=== PATIENT | female | born 1980 | race Caucasian/White ===

== ENCOUNTER 2023-03-11 13:20 | Emergency (ER) | payer OTHER ==
[~2023-03-11] VITALS: Ht 167.6 cm; Wt 90.9 kg
[2023-03-11 14:06] VITALS: TEMP 98.2
[2023-03-11] MEDS ORDERED: metoclopramide 5 mg/ml inj IV ONE (14:10)
[2023-03-11] MEDS ORDERED: normal saline 1000ml 1,000 ML IV ONE (14:10)
[2023-03-11] MEDS ORDERED: ketorolac trometh. 30mg/ml inj. IM ONE (14:10)
[2023-03-11] MEDS ORDERED: diphenhydrAMINE 50 mg/ml inj IV ONE (14:10)
[2023-03-11] MEDS ORDERED: diazepam inj 5 MG/ML inj. IV ONE (14:10)
[2023-03-11 14:23] LABS: BASOPHILS # (AUTO) 0.1 X10'3 (0-0.2); BASOPHILS % (AUTO) 0.7 % (0-1); EOSINOPHILS % (AUTO) 0.4 % (0-6); HEMATOCRIT 38.2 % (35.0-45.0); LYMPHOCYTES # (AUTO) 1.9 X10'3 (1.1-4.8); LYMPHOCYTES % (AUTO) 26.8 % (21-51); MEAN CORPUSCULAR HEMOGLOBIN 29.8 PG (27.0-31.0); MEAN CORPUSCULAR HGB CONC 34.1 g/dL (33.0-36.5); MEAN CORPUSCULAR VOLUME 87.3 FL (78-98); MEAN PLATELET VOLUME 6.9 FL (7.4-10.4); MONOCYTES # (AUTO) 0.4 X10'3 (0-0.9); MONOCYTES % (AUTO) 5.1 % (2-12); NEUTROPHILS # (AUTO) 4.8 X10'3 (1.8-7.7); PLATELET COUNT 350 X10'3 (140-440); RED BLOOD COUNT 4.38 X10'6 (4.20-5.60); RED CELL DISTRIBUTION WIDTH 13.1 % (11.5-14.5); WHITE BLOOD COUNT 7.1 X10'3 (4.5-11.0)
[2023-03-11 14:35] LABS: ALANINE AMINOTRANSFERASE 22 U/L (12-78); ALBUMIN 3.9 G/DL (3.4-5.0); ALBUMIN/GLOBULIN RATIO 1.1 (1.1-1.5); ALKALINE PHOSPHATASE 63 IU/L (46-116); ANION GAP 11 (8-16); ASPARTATE AMINO TRANSFERASE 19 U/L (10-37); BILIRUBIN,TOTAL 0.2 MG/DL (0.1-1.0); BLOOD UREA NITROGEN 17 MG/DL (7-18); BUN/CREATININE RATIO 26.6 (10.0-20.0); CALCIUM 8.7 MG/DL (8.5-10.1); CHLORIDE 104 MMOL/L (99-107); CREATININE 0.64 MG/DL (0.40-0.90); GLUCOSE 107 MG/DL (70-104); POTASSIUM 3.6 MMOL/L (3.5-5.1); SODIUM 139 MMOL/L (135-145); TOTAL CARBON DIOXIDE 23.9 MMOL/L (24-32); TOTAL PROTEIN 7.5 G/DL (6.4-8.2); eGFR > 90 ML/MIN
[2023-03-11 15:42] VITALS: BP 151/92; PULSE 82; RESP 17; O2SAT 97
== END 2023-03-11 15:43 | disposition home or self-care (01) ==
LOC: ER 13:21
DX: G43.909 Migraine, unspecified, not intractable, without status migrainosus (principal); M62.838 Other muscle spasm; R53.1 Weakness; Z88.6 Allergy status to analgesic agent; Z88.5 Allergy status to narcotic agent; Z79.899 Other long term (current) drug therapy; Z88.8 Allergy status to other drugs, medicaments and biological substances
CPT/HCPCS: 36415; 80053; 83735; 85025; 96361; 96372; 96374; 96375; 99285; J1200; J1885; J2765; J3360; J7030

== ENCOUNTER 2025-03-11 07:47 | Inpatient (IN) | payer BC, OTHER ==
[~2025-03-11] VITALS: Ht 167.6 cm; Wt 84.0 kg
--- NOTE | 2025-03-11 09:40 | Physician Documentation ---
History of Present Illness ~ Chief Complaint: Rectal Pain Stated Complaint: ANAL PAIN Time Seen by MD: 09:20 Primary Medical Doctor: Xin Saldana Source: patient (11) Mode of Arrival: POV HPI Patient comes in for evaluation of severe rectal pain. She reports that she had no bowel movement for two days, had a large bowel movement after which she began to have rectal pain that became more severe. Her last stool output was two days ago, and she now reports that in addition to feeling like she needs to move her bowel she is having a hard time urinating. She thought it might be hemorrhoids that she has a remote history of internal hemorrhoids, used [id number] preparation H, tucks pads, and lidocaine without any significant relief. She denies any blood in the stool, denies any fever, abdominal pain, or vomiting. The patient is in a severe amount of pain. Medication Reconciliation Allergies: Coded Allergies: aspirin (Unverified Allergy, Unknown, 03/11/25) fentanyl (Unverified Allergy, Unknown, 03/11/25) tramadol (Unverified Allergy, Unknown, 03/11/25) codeine (Verified Adverse Reaction, Mild, nausea, 03/11/25) Scheduled Cyclobenzaprine HCl (Cyclobenzaprine HCl), 1 TAB PO BID, (Reported) Cyclobenzaprine HCl (Cyclobenzaprine HCl), 1 TAB PO PRN, (Reported) Dextroamphetamine/Amphetamine (Dextroamp-Amphet ER 10 mg Cap), 1 CAP PO QAM, (Reported) Scheduled PRN Dextroamphetamine/Amphetamine (Dextroamp-Amphet ER 10 mg Cap), 1 CAP PO PRN PRN for adhd, (Reported) Miscellaneous Medications Bupropion HCl (Bupropion Xl), (Reported) Gabapentin (Gabapentin ER), (Reported) Discontinued Medications Cyclobenzaprine HCl (Cyclobenzaprine HCl), 1 TAB PO HS, (Reported) Discontinued Reason: wrong med Dextroamphetamine/Amphetamine (Adderall 10 mg Tablet), 1 TAB PO DAILY, (Reported) Discontinued Reason: wrong med Gabapentin (Gabapentin ER), (Reported) Discontinued Reason: wrong med Past Medical History Past Medical History: Migraine, Hypertension, Chronic Back Pain, Osteoporosis, *PSYCH* Past Surgical History: noncontributory Smoking Status: Never smoker Alcohol Use: Heavy (Recent heavy use after a family ) Lives with: Spouse Lives In: Home Occupation: employed Review of Systems All Other Systems at this time: Reviewed and Negative Physical Exam Vital Signs: Temperature: 99.4, Source: Oral, Heart Rate: 111, Respiratory Rate: 19, BP: 148/83, Pulse Oximetry: 99, Weight: 84.090 Oxygen Flow Rate: 0 Physical Exam General: Pt is awake, alert, oriented x4 in significant distress, moaning and crying and unable to change positions in bed, sit, or even lie on her back. Head: Normocephalic and atraumatic. Eyes: Conjunctiva normal. ENT: Mucous membranes dry Neck: Supple. Chest: Clear to auscultation bilaterally, without rales, rhonchi, or wheezes. There is no accessory muscle use or retractions. Cardiac: Regular rate and rhythm without murmurs, gallops or rubs. Palpation of the chest wall is normal. Abd: Soft, nondistended, minimally tender, with normoactive to hyperactive bowel sounds. No guarding or rebound. Rectal: Pt has perirectal erythema, a quiescent appearing external hemorrhoid, and a large exquisitely tender mass posterior to the anus. I am unable to pal espinoza due to severe pain and tenderness. Extremities: Within normal limits without cyanosis, clubbing, or edema. Skin: Titanic, warm and dry with no significant rash appreciated. Neuro: Cranial nerves II-XII grossly intact. The gait is not tested at this time Progress Results/Orders Results/Orders Orders - VAHID LEE MD Culture Blood (03/11/25 09:40) Morphine 2mg/Ml Inj. (Morphine Inj.) (03/11/25 09:40) Monitor (03/11/25 09:40) Saline Lock (03/11/25 09:40) Straight Cath For Urine Sample (03/11/25 09:40) Ct Abdomen Pelvis (03/11/25 09:40) Lauren Hospitalist (03/11/25 13:10) Md Jovan Aguilar (03/11/25 13:10) Completed Orders - VAHID LEE MD Cbc/Diff (03/11/25 09:40) Hcg Serum Ql (03/11/25 09:40) Ondansetron Inj. (Zofran 4mg/2ml Vial) (03/11/25 09:40) Morphine 4mg/Ml Inj. (Morphine Inj.) (03/11/25 09:40) Normal Saline 1000ml (0.9% Sodium Chlori (03/11/25 09:40) Nothing By Mouth (03/11/25 Lunch) BMP (03/11/25 09:40) Diazepam Inj (Valium Inj) (03/11/25 09:40) Lacticsepsis (03/11/25 09:40) Ct Abdomen Pelvis (03/11/25 09:40) Iohexol 300mg/Ml 100ml Inj. (Omnipaque-3 (03/11/25 10:59) Ua W/Microscopic, Cult If Ind (03/11/25 11:14) Piperacillin/Tazo 3.375gm/50ml (Zosyn 3. (03/11/25 11:50) Vital Signs 03/11/25 03/11/25 03/11/25 03/11/25 07:54 08:21 08:21 09:58 Temp 99.4 99.4 Pulse 121 111 Resp 16 18 19 19 B/P (MAP) 146/86 148/83 (104) Pulse Ox 100 99 O2 Flow Rate 0 03/11/25 03/11/25 03/11/25 10:16 12:18 12:21 Resp 15 18 16 Laboratory Tests Test 03/11/25 10:27 03/11/25 11:14 White Blood Count 16.2 H Red Blood Count 3.98 L Hemoglobin 11.8 L Hematocrit 34.5 L Mean Corpuscular Volume 86.5 Mean Corpuscular Hemoglobin 29.5 Mean Corpuscular Hemoglobin Concent 34.1 Red Cell Distribution Width 12.7 Platelet Count 376 Mean Platelet Volume 6.4 L Neutrophils (%) (Auto) 84.5 H Lymphocytes (%) (Auto) 8.4 L Monocytes (%) (Auto) 6.7 Eosinophils (%) (Auto) 0.1 Basophils (%) (Auto) 0.3 Neutrophils # (Auto) 13.7 H Lymphocytes # (Auto) 1.4 Monocytes # (Auto) 1.1 H Eosinophils # (Auto) 0.0 Basophils # (Auto) 0.0 CBC Comment Prothrombin Time 11.4 INR International Normalized Ratio 1.1 Activated Partial Thromboplast Time 34 H Coagulation Comments Sodium Level 138 Potassium Level 3.2 L Chloride Level 103 Carbon Dioxide Level 27.2 Anion Gap 8 Blood Urea Nitrogen 8 Creatinine 0.47 Estimated GFR/1.73 m2 > 90 BUN/Creatinine Ratio 17.0 Glucose Level 94 Lactic Acid Level 1.0 Calcium Level 8.1 L Phosphorus Level 1.5 L Magnesium Level 1.9 Pro-B-Type Natriuretic Peptide 122 Albumin 2.8 L Thyroid Stimulating Hormone (TSH) 0.66 Human Chorionic Gonadotropin, Qual Negative Chemistry Comments Urine Specimen Description Voided Urine Color Yellow Urine Clarity Cloudy Urine pH 6.0 Urine Specific [place] 1.020 Urine Protein Trace Urine Glucose (UA) Negative Urine Ketones 15 H Urine Occult Blood Small Urine Nitrite Negative Urine Bilirubin Negative Urine Urobilinogen 0.2 Urine Leukocyte Esterase Negative Urine RBC 10-20 Urine WBC 0-4 Urine Squamous Epithelial Cells Moderate Urine Bacteria Few Urine Mucus Many Urine Culture Indicated Not ind Volume Urine Centrifuged 10 ml Urine Comment Microbiology Date/Time Source Procedure Growth Status 03/11/25 11:21 Blood Hand Left Blood Culture - Preliminary NEGATIVE (LESS THAN 24 HOURS) Resulted Consults/PCP Consults/PCP : Time Call Requested: 13:11 Consult Reason/Comments: Hospitalist and Surgery Additional Comment [id number] Case d/w Dr. Brewer, who will kindly consult Dr Hua, Hospitalist, aware and is coming down to discuss patient. Medical Decision Making Additional Comments Patient presenting with rectal pain after a large bowel movement following a period of constipation. Initially I entertained the diagnosis of an anal fissure, which can be quite painful, however patient was in much too much pain for this to be likely. Examination showed perirectal erythema, warmth, and a mass suggesting deep space infection. Patient was made comfortable with IV fluids, pain medications, anxiolytics, and IV antibiotics, and imaging was pursued to evaluate the extent of the infectious process. This did show to be large perirectal abscess with posterior extension, patient was admitted to hospitalist service with surgical consultation for definitive care. Patient without evidence of sepsis at this time. Departure Time of Disposition: 13:11 Admitted to Inpatient Unit: yes, to hospitalist Impression: Primary Impression: Perirectal abscess Condition: Guarded Referrals: NO PRIMARY CARE PROVIDER (PCP) Education Educated: Patient, Family Educated regarding: diagnosis, treatment Signature Scribe Signature: Attestation: VAHID LEE MD Mar 11, 2025 09:40
[2025-03-11] MEDS: diazepam inj 5 MG/ML inj. IV ONE (09:58)
[2025-03-11] MEDS: normal saline 1000ML IV soln IVB ONE (09:58)
[2025-03-11] MEDS: ondansetron/PF 4mg/2ml inj IV ONE (09:58)
[2025-03-11] MEDS: morphine 4 MG/ML inj SYRINge IV ONE (09:58)
[2025-03-11 10:39] LABS: MEAN PLATELET VOLUME 6.4 FL (7.4-10.4); RED CELL DISTRIBUTION WIDTH 12.7 % (11.5-14.5)
[2025-03-11 10:48] LABS: CREATININE 0.47 MG/DL (0.40-0.90); TOTAL CARBON DIOXIDE 27.2 MMOL/L (24-32); eCRCL 143 ML/MIN; eGFR > 90 ML/MIN
[2025-03-11] MEDS ORDERED: iohexol 300mg/ml 100ml inj. ONE (10:59)
[2025-03-11 11:14] LABS: HCG SERUM QL NEGATIVE
[2025-03-11 11:22] LABS: LEUKOCYTE ESTERASE ,URINE NEGATIVE (Neg); NITRITES, URINE NEGATIVE (Neg); OCCULT BLOOD,URINE SMALL (Neg)
[2025-03-11 11:26] LABS: UA COLLECTION TYPE VOIDED
[2025-03-11 11:30] LABS: MUCUS STRANDS MANY /LPF (Neg); SQUAMOUS EPITHELIAL CELL,UR MODERATE /LPF (FEW)
[2025-03-11] MEDS: piperacillin/tazo 3.375gm/50ml 50 ML IV ONE (12:18)
--- NOTE | 2025-03-11 12:21 | RADIOLOGY REPORT ---
EXAM: CT CT ABDOMEN PELVIS W/ IV CONTRAST HISTORY: Perianal abscess clinically -- evaluate extent TECHNIQUE: Volumetric multidetector CT images of the abdomen and pelvis were obtained after the admin istration of intravenous contrast. All CT scans at this facility use dose modulation, iterative recon struction, and/or weight based dosing when appropriate to reduce radiation dose to as low as reasonab ly achievable. COMPARISON: None FINDINGS: [LOWER CHEST]: The partially visualized lung bases are clear without a pleural effusion. [LIVER]: Normal hepatic size without suspicious focal lesion. [GALLBLADDER AND BILIARY TREE]: Surgically absent. [SPLEEN]: Unremarkable. [PANCREAS]: Unremarkable. [ADRENAL GLANDS]: Unremarkable [KIDNEYS]: No hydronephrosis. No nephroureterolithiasis. 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 No imaging follow-up required. [BLADDER]: Unremarkable for the degree distention. [REPRODUCTIVE ORGANS]: Hysterectomy. [BOWEL/MESENTERY]: Stomach is normal. No CT evidence of bowel obstruction. Significant perirectal abs cess with posterior extension along bilateral perirectal tissue. Abscess measures 5.2 x 3.8 cm. [ASCITES]: Absent [LYMPHADENOPATHY]: No pathologically enlarged lymph nodes by CT size criteria [VASCULATURE]: No aneurysmal dilatation. [ABDOMINAL WALL]: Unremarkable. [MUSCULOSKELETAL]: No acute fracture or aggressive focal osseous lesion. Multifocal degenerative luna ge of the visualized spine. Multilevel chronic superior endplate height loss of T11 and T12. No ret ropulsion. IMPRESSION: 1. Significant perirectal abscess as detailed above. 2. Posterior superior extent to the level of the levator ani. 3. Recommend further evaluation with MRI rectal protocol for fistula analysis.
--- NOTE | 2025-03-11 13:17 | HISTORY AND PHYSICAL ---
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 She reports that she had no bowel movement for two days, had a large bowel movement after which she began to have rectal pain that became more severe. Her last stool output was two days ago, and she now reports that in addition to feeling like she needs to move her bowel she is having a hard time urinating. She thought it might be hemorrhoids that she has a remote history of internal hemorrhoids, used [id number] preparation H, tucks pads, and lidocaine without any significant relief. She denies any blood in the stool, denies any fever, abdominal pain, or vomiting. The patient is in a severe amount of pain. Emergency department patient was evaluated by physician, was diagnosed with a perirectal abscess, and after consultation with the surgeon decision was made to admit patient for further evaluation treatment, patient started on IV antibiotics, NPO. No additional complaint or concern. Allergies: Coded Allergies: aspirin (Unverified Allergy, Unknown, 03/11/25) fentanyl (Unverified Allergy, Unknown, 03/11/25) tramadol (Unverified Allergy, Unknown, 03/11/25) codeine (Verified Adverse Reaction, Mild, nausea, 03/11/25) Active prescriptions Non Home Medications Non Past Medical History Past Medical History As in HPI Past Surgical History Surgical History Comment As in HPI Past Social History Social History Comment Deny illicit drug abuse tobacco alcohol use live with the family good social support Health Maintenance Health Maintenance Noncontributory ROS ROS Constitutional : no fever , no chills, or weakness. No diaphoresis. Allergic/Immunologic, no lymphadenopathy, no hives, no skin eruptions. Eyes, no recent visual changes, no eye pain, no photophobia. Ears, nose, mouth, throat, no sore throat, no nosebleed, no ear pain. Cardiovascular, no palpitations, skipped beats, chest pain, no peripheral edema, Respiratory, no dyspnea, orthopnea, cough, hemoptysis, chest wall pain. Gastrointestinal, no abdominal pain, nausea, vomiting, constipation or diarrhea. : no dysuria, hematuria, pelvic pain, urethral d/c. Positive for rectal pain Endocrine, no polyuria, polydipsia, recent unintentional weight gain or loss. Hematologic/Lymphatic, no petechiae, no enlarged lymph nodes, no bone pain. Integumentary, no rash, no skin lesions, Musculoskeletal, no muscle aches, or pain, no muscle cramps, no recent change in gait Neurological, no dizziness, no headache, no syncope, no paresthesia. Psychiatric, no delusions, visual hallucinations, or hearing hallucinations. ROS - in rest is as in HPI. Exam Vitals: Vital Signs Date Time Temp Pulse Resp B/P (MAP) Pulse Ox O2 Delivery O2 Flow Rate FiO2 03/11/25 12:21 16 03/11/25 08:21 99.4 111 148/83 (104) 99 0 Vital signs, stable , febrile, tachycardic, Pulse Oximetry reflects adequate oxygenation. BMI is 29, weight 84 kg General: well developed, well nourished. Awake , alert, and oriented x4, resting comfortably in the bed, in acute distress secondary to rectal pain Skin: Warm, dry, no pallor, no rash or petechiae. HEENT: Atraumatic, normocephalic, EOMI, anicteric sclera B; pink conjunctiva; PERRLA, normal oropharynx, moist oral and nasal mucosa. Tympanic membrane , nose , throat clear. Neck: Trachea midline. Supple, full range of motion, no JVD, bruit , hepatojugular reflex , lymphadenopathy or masses, or other lesions Cardiac: Regular rhythm, regular rate no murmurs, rubs, or gallops. Normal S1 and S2, no S3 noticed. PMI is normal. Respiratory: Equal breath sounds bilaterally, no tachypnea; lungs clear to auscultation bilaterally, no wheezing ,rub or rales, or crackles. Chest wall is symmetric and without deformity. No signs of trauma. Chest wall is nontender. No signs of respiratory distress. Resonance is normal upon percussion bilaterally. Gastrointestinal: Abdomen symmetric, non-distended, soft, non-tender, normal bowel sounds x4 quadrant, normoactive, no hepatosplenomegaly , no masses , no bruit, no flank pain bilaterally. No voluntary guarding, rebound, or rigidity. No tenderness to percussion. No pulsatile masses. Equal femoral pulses. No Lord's sign or McBurney point tenderness. Back; no CVA tenderness bilaterally, no deformities. Neck and back are without deformity as well. No tenderness noted on palpation of the spinous processes. Spinous processes are midline. Cervical, thoracic, and lumbar paraspinal muscles are not tender and are without spasm. : Rectal exam completed by ER physician, reviewed. Musculoskeletal: Extremities, normal range of motion, non-tender, muscle strength 5/5 x 4. Negative Homans signs bilaterally on lower extremity. Distal pulses full symmetrical, no clubbing, cyanosis , edema. Neurological: Speech is clear, alert, and oriented x 4. No motor or sensory deficit, deep tendon reflexes normal, cerebellar intact. Cranial nerves II-XII intact. Psych: Alert and or appropriate, normal affect. Vascular: Good distal pulses, which are equal x4; capillary refill less than 2 seconds. Lymphatic, no lymphadenopathy. Diagnostic Data Last Recorded Lab Results: 03/11/25 1027 03/11/25 1027 Advance Care Planning Advanced Care plannin - 30 Minutes Additional Plan Assessment Perirectal abscess Sepsis Acute urinary retention Hypophosphatemia Chronic constipation in exacerbation migraine headaches Hypokalemia Hypertension fair control dehydration associated with ketonuria Hypoalbuminemia Gait disorder, antalgic History of hysterectomy, migraine headaches Plan IV fluids, antibiotics Pain control IV p.o. analgesics Replace electrolytes Additional lab work Pending Laxatives on board PT evaluation and treatment Forman catheter in place functional Surgeon Dr. Escudero is on the case Reconciled home medications DVT gastropathy prophylaxis addressed IV Protonix Patient NPO Sepsis Screening Reassessment Date: Mar 11, 2025 Date of Service: Mar 11, 2025 Billing Provider: ESTEPHANIA MCKNIGHT MD Common Visit Codes: [id number] INP/OBS CARE (HIGH) Secondary Visit Codes: [id number] CARE PLAN 30 MINUTES ESTEPHANIA MCKNIGHT MD Mar 11, 2025 13:17
[2025-03-11] MEDS ORDERED: magnesium hydroxide 30ml (MOM) UD suspension PO PRN (14:20)
[2025-03-11] MEDS ORDERED: ondansetron 4mg rapidly disintigrating tab PO PRN (14:20)
[2025-03-11] MEDS ORDERED: mag hydrox/Alum hydrox/simeth 30ml oral suspension PO PRN (14:20)
[2025-03-11] MEDS ORDERED: bisacodyl 10mg suppository rectal RC PRN (14:20)
[2025-03-11 14:42] LABS: APTT 34 SECONDS (22-32); INR 1.1 INR
[2025-03-11] MEDS: HYDROmorphone inj. 0.5 MG/0.5 ML DISP.SYRIN IV PRN (14:49)
[2025-03-11] MEDS: potassium Cl 20mEq in NS 1,000 ML IV SCH (14:52)
[2025-03-11 14:54] LABS: PHOSPHORUS 1.5 MG/DL (2.3-4.5); PRO BRAIN NATRIURETIC PEPTIDE 122.0 PG/ML (0-125)
[2025-03-11 15:20] VITALS: BP 138/72; PULSE 115; RESP 14; TEMP 100.3; O2SAT 100
[2025-03-11] MEDS: HYDROcodone/acetaminophen 10/325mg tab PO PRN (16:00)
[2025-03-11] MEDS ORDERED: GABA300T28 (16:11)
[2025-03-11] MEDS ORDERED: CYCL-394 PO ×2 (16:11→16:14)
[2025-03-11] MEDS ORDERED: CYCL10TA25 PO (16:11)
[2025-03-11] MEDS ORDERED: DEXT10CA19 PO ×2 (16:11→16:16)
[2025-03-11] MEDS ORDERED: [UNRECOGNIZED DRUG - CODE] (16:11)
[2025-03-11] MEDS ORDERED: BUPR-726 (16:11)
[2025-03-11] MEDS ORDERED: DEXT10TA8 PO (16:11)
[2025-03-11] MEDS ORDERED: sodium phosphate inj. 15 MMOL in dextrose 5%-water 250 ML IV PRN (16:35)
[2025-03-11] MEDS ORDERED: potassium Cl 20 mEq SR tablet PO PRN (16:35)
[2025-03-11] MEDS ORDERED: magnesium Cl slow-release 64mg tablet PO PRN (16:35)
[2025-03-11] MEDS ORDERED: potassium Cl 40MEQ/1/2NS 520ml 520 ML IV PRN (16:35)
[2025-03-11] MEDS ORDERED: magnesium sulf-water 4G/100mL 100 ML IV PRN (16:35)
[2025-03-11] MEDS ORDERED: sodium phosphate inj. 30 MMOL in dextrose 5%-water 250 ML IV PRN (16:35)
[2025-03-11 17:04] VITALS: RESP 18; O2SAT 100
[2025-03-11] MEDS: morphine 4 MG/ML inj SYRINge IV PRN (17:28)
[2025-03-11] MEDS: docusate sod 100mg capsule PO SCH (19:25)
[2025-03-11] MEDS: metoclopramide 5 mg/ml inj IV PRN (19:27)
[2025-03-11] MEDS: piperacillin/tazo 4.5gm/100ml 100 ML IV SCH (19:42)
[2025-03-11 20:00] VITALS: BP 137/80; PULSE 118; RESP 15; TEMP 99.3; O2SAT 96
[2025-03-11] MEDS: K and/or MAG REPLACEMENT MC SCH (20:00)
--- NOTE | 2025-03-11 20:51 | PROGRESS NOTE ---
Progress Note ID Providers to CC ~ Progress Note Progress Note: pt seen-findings consistent with perirectal abscess-pt needs I/D perirectal abscess-discussed procedure including risks/benefits/alternatives JAYESH LOPEZ MD Mar 11, 2025 20:51
[2025-03-12] VITALS (19 sets, daily range): BP systolic 125–161; BP diastolic 68–106; PULSE 89–116; RESP 12–20; TEMP 97–99.2; O2SAT 91–99
[2025-03-12 06:34] LABS: MEAN PLATELET VOLUME 6.7 FL (7.4-10.4); RED CELL DISTRIBUTION WIDTH 12.7 % (11.5-14.5)
[2025-03-12 06:54] LABS: CREATININE 0.52 MG/DL (0.40-0.90); TOTAL CARBON DIOXIDE 25.2 MMOL/L (24-32); eCRCL 129 ML/MIN; eGFR > 90 ML/MIN
[2025-03-12 07:56] LABS: INR 1.2 INR
[2025-03-12] MEDS ORDERED: pantoprazole 40MG/NS 100ML BAG 100 ML IV SCH (08:00)
[2025-03-12] MEDS ORDERED: labetalol 20mg/4ml (5mg/ml) syringe IV PRN ×2 (09:10→11:25)
[2025-03-12] MEDS ORDERED: ondansetron/PF 4mg/2ml inj IV PRN ×2 (09:10→11:25)
[2025-03-12] MEDS ORDERED: hydrALAZINE 20mg/ml inj. IV PRN (09:10)
[2025-03-12] MEDS ORDERED: morphine 4 MG/ML inj SYRINge IV PRN ×2 (09:10→11:25)
[2025-03-12] MEDS ORDERED: HYDROmorphone/PF 0.2 MG/ML SYRINGE IV PRN (09:10)
[2025-03-12] MEDS: ringers solution, lacted 1,000 ML IV SCH ×2 (09:10→11:25)
[2025-03-12] MEDS: scopolamine 1MG/72H patch 1 PATCH PATCH.TD.3 TD SCH (09:12)
[2025-03-12] MEDS ORDERED: midazolam 1 mg/ML 2ml injection ONE (10:43)
[2025-03-12] MEDS ORDERED: fentaNYL/PF 50MCG/1 ML 2ML syringe ONE (10:43)
[2025-03-12] MEDS ORDERED: ondansetron/PF 4mg/2ml inj ONE (10:45)
[2025-03-12] MEDS ORDERED: dexamethasone sod phosphate 4mg/ml inj. ONE (10:53)
[2025-03-12] MEDS ORDERED: propofol inj 20 ML IV ONE (10:53)
[2025-03-12] MEDS ORDERED: LIDOcaine 2% (20mg/ml) 5ml vial ONE (10:53)
[2025-03-12] MEDS ORDERED: morphine 4 MG/ML inj SYRINge ONE (10:58)
[2025-03-12] MEDS ORDERED: HYDROcodone/acetaminophen 5mg/325mg tablet PO PRN (11:10)
--- NOTE | 2025-03-12 11:11 | OPERATIVE REPORT ---
Operative Report Providers to CC ~ Date of Procedure: Mar 12, 2025 Pre-Operative Diagnosis: Perirectal abscess; sepsis Post-Operative Diagnosis SAME as PRE-Op Procedure Performed i/d perirectal abscess Surgeon: sabra Rodriguez none Anesthesiologist: Nikolas Salgado Type of Anesthesia: General Findings: perirectal abscess Estimated Blood Loss: min Specimen Removed: culture JAYESH LOPEZ MD Mar 12, 2025 11:11
[2025-03-12] MEDS ORDERED: enalaprilat 1.25mg/ml 2ml vial IV PRN (11:25)
[2025-03-12] MEDS ORDERED: meperidine/PF 25mg/ml syringe IV PRN ×3 (11:25)
[2025-03-12] MEDS: HYDROmorphone/PF 0.2 MG/ML SYRINGE IV PRN (11:35)
[2025-03-12] MEDS: acetaminophen 1,000mg/100ml IV 100 ML IV PRN (11:36)
[2025-03-12] MEDS: potassium Cl 20 mEq SR tablet PO PRN (13:45)
--- NOTE | 2025-03-12 14:53 | OPERATIVE REPORT ---
DATE OF SURGERY: 03/12/2025 DICTATING PHYSICIAN: Donnie Brewer MD PREOPERATIVE DIAGNOSIS: Perirectal abscess. POSTOPERATIVE DIAGNOSIS: Perirectal abscess. PROCEDURE PERFORMED: Incision and drainage of perirectal abscess. SURGEON: Donnie Brewer MD MASTER ELECTRICIAN: None. ANESTHESIA: General/Dr. Salgado. DRAINS: None. INDICATIONS FOR OPERATION: A 44-year-old female with perirectal pain, found to have a large perirectal abscess, taken to surgery for drainage. INTRAOPERATIVE FINDINGS: Large perirectal abscess. DESCRIPTION OF PROCEDURE: The patient was placed supine on the operating room table. After induction of general anesthesia and placement of endotracheal tube, timeout was performed. The patient was placed in lithotomy. Perirectal area was then prepped and draped. Incision was then made in the approximately 4 o'clock to the previously draining tract. Large amount of pus evacuated. Cultures were obtained. The wound was then explored. Loculations broken down using finger dissection. Large abscess cavity was then irrigated with antibiotic solution, essentially packed with a quarter-inch gauze. Dressing applied. The patient was transferred to recovery in stable condition. Donnie Brewer MD TID: [id number] RECEIPT: [id number]
--- NOTE | 2025-03-12 16:50 | PROGRESS NOTE ---
Daily Progress Note Providers to CC Doing better today, pain well controlled, tolerating medication fine awaiting to go to OR today ~ Central Line/PICC still needed: No Forman-Non Protocol Forman Indications Met/Not Met: F/C Indications Met Antibiotic Timeout Antibiotic Ordered?: Yes MRSA Education MRSA Education Provided to pt: Yes Subjective As above Objective Vital Signs Date Time Temp Pulse Resp B/P (MAP) Pulse Ox O2 Delivery O2 Flow Rate FiO2 03/12/25 16:15 19 03/12/25 12:10 105 136/84 (101) 96 Nasal Cannula 2.0 03/12/25 11:19 99.0 Vital signs, stable ,afebrile. Pulse Oximetry reflects adequate oxygenation. General: well developed, well nourished. Awake , alert, and oriented x4, resting comfortably in the bed, in no acute distress . Skin: Warm, dry, no pallor, no rash or petechiae. HEENT: Atraumatic, normocephalic, EOMI, anicteric sclera B; pink conjunctiva; PERRLA, normal oropharynx, moist oral and nasal mucosa. Tympanic membrane , nose , throat clear. Neck: Trachea midline. Supple, full range of motion, no JVD, bruit , hepatojugular reflex , lymphadenopathy or masses, or other lesions Cardiac: Regular rhythm, regular rate no murmurs, rubs, or gallops. Normal S1 and S2, no S3 noticed. PMI is normal. Respiratory: Equal breath sounds bilaterally, no tachypnea; lungs clear to auscultation bilaterally, no wheezing ,rub or rales, or crackles. Chest wall is symmetric and without deformity. No signs of trauma. Chest wall is nontender. No signs of respiratory distress. Resonance is normal upon percussion bilaterally. Gastrointestinal: Abdomen symmetric, non-distended, soft, non-tender, normal bowel sounds x4 quadrant, normoactive, no hepatosplenomegaly , no masses , no bruit, no flank pain bilaterally. No voluntary guarding, rebound, or rigidity. No tenderness to percussion. No pulsatile masses. Equal femoral pulses. No Lord's sign or McBurney point tenderness. Back; no CVA tenderness bilaterally, no deformities. Neck and back are without deformity as well. No tenderness noted on palpation of the spinous processes. Spinous processes are midline. Cervical, thoracic, and lumbar paraspinal muscles are not tender and are without spasm. Musculoskeletal: Extremities, normal range of motion, non-tender, muscle strength 5/5 x 4. Negative Homans signs bilaterally on lower extremity. Distal pulses full symmetrical, no clubbing, cyanosis , edema. Neurological: Speech is clear, alert, and oriented x 4. No motor or sensory deficit, deep tendon reflexes normal, cerebellar intact. Cranial nerves II-XII intact. Psych: Alert and or appropriate, normal affect. Vascular: Good distal pulses, which are equal x4; capillary refill less than 2 seconds. Lymphatic, no lymphadenopathy. Result Diagram: 03/12/25 0559 03/12/25 0559 Coagulation Studies Laboratory Tests Test 03/11/25 10:27 03/12/25 07:31 Activated Partial Thromboplast Time 34 SECONDS (22-32) H Prothrombin Time 12.5 SECONDS (9.0-12.0) H INR International Normalized Ratio 1.2 INR Coagulation Comments Problem\Assessment\Plan Assessment Perirectal abscess Sepsis Acute urinary retention Hypophosphatemia Chronic constipation in exacerbation migraine headaches Hypokalemia Hypertension fair control dehydration associated with ketonuria Hypoalbuminemia Gait disorder, antalgic History of hysterectomy, migraine headaches Plan IV fluids, antibiotics Pain control IV p.o. analgesics Replace electrolytes Additional lab work Pending Laxatives on board PT evaluation and treatment Forman catheter in place functional Surgeon Dr. Escudero is on the case , will take patient to OR today Reconciled home medications DVT gastropathy prophylaxis addressed IV Protonix Patient NPO Sepsis Screening Reassessment Date: Mar 12, 2025 Date of Service: Mar 12, 2025 Billing Provider: ESTEPHANIA MCKNIGHT MD Common Visit Codes: [id number] INP/OBS CARE(HIGH) ESTEPHANIA MCKNIGHT MD Mar 12, 2025 16:50
[2025-03-13] VITALS (7 sets, daily range): BP systolic 115–152; BP diastolic 72–94; PULSE 80–109; RESP 15–18; TEMP 97.6–99.8; O2SAT 95–99
--- NOTE | 2025-03-13 02:23 | CONSULTATION ---
DATE OF CONSULTATION: 03/11/2025 DICTATING PHYSICIAN: Donnie Brewer MD REASON FOR CONSULTATION: Evaluation of perirectal abscess. HISTORY OF PRESENT ILLNESS: The patient is a 44-year-old female with a history of hypertension, chronic pain, and osteoporosis, who developed severe perirectal pain. CT of the pelvis revealed a perirectal abscess. Surgical evaluation is now requested. On further questioning, the patient denies any previous episodes. No history of incontinence. No history of perirectal fistula. No history of inflammatory bowel disease. PAST MEDICAL HISTORY: Notable for migraines, hypertension, chronic pain, osteoporosis. PAST SURGICAL HISTORY: Unremarkable. HOME MEDICATIONS: See chart. ALLERGIES: INCLUDE ASPIRIN, FENTANYL, TRAMADOL, AND CODEINE. SOCIAL HISTORY: Denies tobacco use. She does use alcohol on occasion. She lives with her spouse. REVIEW OF SYSTEMS: See H and P. PHYSICAL EXAMINATION: GENERAL: A well-nourished female, in no distress. VITAL SIGNS: Unremarkable. ABDOMEN: Nondistended. RECTAL: Perirectal area is quite tender. LABORATORY DATA: WBC of 16, hematocrit of 34, platelet count is 376. Chemistries are unremarkable. IMAGING STUDIES: CAT scan reveals a large perirectal abscess. IMPRESSION: * Perirectal abscess. * Hypertension. * History of osteoporosis. * Chronic pain. PLAN: I and See Brewer MD TID: [id number] RECEIPT: [id number]/YOK
[2025-03-13 06:33] LABS: MEAN PLATELET VOLUME 6.7 FL (7.4-10.4); RED CELL DISTRIBUTION WIDTH 12.4 % (11.5-14.5)
[2025-03-13 08:16] LABS: TOTAL CARBON DIOXIDE 26.9 MMOL/L (24-32)
[2025-03-13 08:43] LABS: CREATININE 0.48 MG/DL (0.40-0.90); eCRCL 140 ML/MIN; eGFR > 90 ML/MIN
--- NOTE | 2025-03-13 13:14 | PROGRESS NOTE ---
Daily Progress Note Providers to CC ~ Antibiotic Timeout Antibiotic Ordered?: Yes Subjective No acute events overnight. Patient examined at bedside. No new complaints, not in acute distress. Patient denies chest pain, sob, palpitations, abdominal pain, n/v/d. Vss, labs notable for persistent leukocytosis but otherwise unremarkable, continued on abx. Objective Vital Signs Date Time Temp Pulse Resp B/P (MAP) Pulse Ox O2 Delivery O2 Flow Rate FiO2 03/13/25 11:28 16 03/13/25 11:00 99.2 89 130/80 (97) 95 Room Air 03/12/25 12:30 1.0 Result Diagram: 03/13/25 0555 03/13/25 05 Physical Exam General: Generalized weakness, A&Ox 3, NAD HEENT: Normocephalic, PERRLA Neck: Supple, trachea midline, no JVD Chest: Clear to auscultation bilaterally Cardiovascular: RRR, S1&S2 GI: Soft and nontender Extremities: No cyanosis/clubbing/or edema MANAGER FIELD INVESTIGATIONS: CN II-XII intact, no focal deficits Musculoskeletal: No paraspinal muscle tenderness, no muscle spasm Skin: I&D perirectal abscess, packed with gauze Coagulation Studies Laboratory Tests Test 03/11/25 10:27 03/12/25 07:31 Activated Partial Thromboplast Time 34 SECONDS (22-32) H Prothrombin Time 12.5 SECONDS (9.0-12.0) H INR International Normalized Ratio 1.2 INR Coagulation Comments Problem\Assessment\Plan Assessment & Plan Perirectal abscess Sepsis Acute urinary retention Hypophosphatemia Chronic constipation Hypokalemia Hypertension Dehydration Hypoalbuminemia Gait disorder History of hysterectomy, migraine headaches -s/p I&D of perirectal abscess (Dr. Brewer), continued on abx, IVF Date of Service: Mar 13, 2025 Billing Provider: ELSI GUNN Common Visit Codes: [id number] INP/OBS CARE(HIGH) ELSI GUNN Mar 13, 2025 13:14
--- NOTE | 2025-03-13 16:49 | PROGRESS NOTE ---
Progress Note ID Providers to CC ~ Progress Note Progress Note: doing well/start sitz JAYESH Jones MD Mar 13, 2025 16:49
[2025-03-13] MEDS: magnesium hydroxide 30ml (MOM) UD suspension PO SCH (19:03)
[2025-03-14 02:00] VITALS: BP 142/84; PULSE 97; RESP 20; TEMP 97.2; O2SAT 98
[2025-03-14 07:00] VITALS: BP 131/82; PULSE 89; RESP 12; TEMP 96.9; O2SAT 93
[2025-03-14 08:17] LABS: MEAN PLATELET VOLUME 6.7 FL (7.4-10.4); RED CELL DISTRIBUTION WIDTH 12.8 % (11.5-14.5)
[2025-03-14 08:48] LABS: CREATININE 0.52 MG/DL (0.40-0.90); TOTAL CARBON DIOXIDE 28.7 MMOL/L (24-32); eCRCL 129 ML/MIN; eGFR > 90 ML/MIN
[2025-03-14] MEDS: ondansetron/PF 4mg/2ml inj IV PRN (09:42)
[2025-03-14] MEDS ORDERED: HYDR-3965 PO (13:54)
[2025-03-14] MEDS ORDERED: METR-159 PO (13:54)
[2025-03-14] MEDS ORDERED: CIPR-458 PO (13:54)
[2025-03-14 15:00] VITALS: BP 128/86; PULSE 87; RESP 16; TEMP 97.7; O2SAT 96
--- NOTE | 2025-03-14 17:40 | DISCHARGE SUMMARY ---
Discharge Summary Providers to CC ~ Discharge Summary Admission Diagnosis: Perirectal abscess; sepsis Hospital Course DATE OF ADMISSION: 03/11/25 DATE OF DISCHARGE: 03/14/25 Discharge Diagnosis\Comment: Perirectal abscess Sepsis 2/2 above Acute urinary retention Hypophosphatemia Chronic constipation Hypokalemia Hypertension Dehydration Hypoalbuminemia Gait disorder History of hysterectomy, migraine headaches Operations\Procedures: I&D perirectal abscess Consultants: Surgeon Donnie Banda Complications: None Condition on DC: Stable New Medications: Ciprofloxacin HCl (Ciprofloxacin HCl) 500 Mg Tab 1 TAB PO BID for 10 Days, #20 TAB Hydrocodone Bit/Acetaminophen 5/325 MG (Shields 5/325 MG) 5 Mg/325 Mg Tablet 1 TAB PO Q4H PRN for moderate or severe pain for 5 Days, #30 TAB Metronidazole* (Flagyl*) 500 Mg Tablet 1 TAB PO Q8H for 10 Days, #30 TAB Continued Medications: Bupropion HCl (Bupropion Xl) 150 Mg Tab.er.24h Cyclobenzaprine HCl (Cyclobenzaprine HCl) 10 Mg Tablet 1 TAB PO BID for muscle spasm Cyclobenzaprine HCl (Cyclobenzaprine HCl) 10 Mg Tablet 1 TAB PO PRN for 10 Days, #30 TAB Dextroamphetamine/Amphetamine (Dextroamp-Amphet ER 10 mg Cap) 10 Mg Cap.er.24h 1 CAP PO QAM Dextroamphetamine/Amphetamine (Dextroamp-Amphet ER 10 mg Cap) 10 Mg Cap.er.24h 1 CAP PO PRN PRN for adhd for 30 Days, #30 CAP 0 Refills Gabapentin (Gabapentin ER) 600 Mg Tab.er.24h Discharge Summary: Hospital Course Portia Madrigal is a 44-year-old female with past medical history of hypertension and constipation who presents to the ED with chief complaint of acute onset severe rectal pain that started after being constipated for two days and subsequently having a large bowel movement. Diagnostic findings were notable for findings of sepsis and CT abdomen/pelvis revealing significant perirectal abscess. Patient was started on intravenous fluids and empirical antibiotics. Case was consulted with surgeon Dr. Brewer and patient underwent I&D of perirectal abscess with packing. Perirectal abscess culture resulted positive for E coli. Patient did not experience further complications throughout the entire hospital stay and made a good recovery. Patient was seen and examined on the day of discharge. On day of discharge, vss and labs unremarkable. Blood cultures remain negative until the day of discharge. All labs, diagnostic workups, discharge plan discussed with patient in details during visit before discharge. All questions and concerns answered to the best of my professional knowledge. Patient is cleared for discharge from surgical standpoint by Dr. Brewer. Patient is to be discharged to home to self with a course of antibiotics. Patient is to follow-up with PCP and Dr. Brewer within 2 weeks. Patient is referred to outpatient wound care clinic upon discharge. Abscess culture anaerobic is preliminary on day of discharge, hence will discharge with anaerobe coverage. Physical Exam General: A&Ox 3, NAD HEENT: Normocephalic, PERRLA Neck: Supple, trachea midline, no JVD Chest: Clear to auscultation bilaterally Cardiovascular: RRR, S1&S2 GI: Soft and nontender Extremities: No cyanosis/clubbing/or edema PROCESS STRIPPER: CN II-XII intact, no focal deficits Musculoskeletal: No paraspinal muscle tenderness, no muscle spasm Skin: I&D perirectal abscess, packed with gauze *Problems/Diagnosis: (1) Perirectal abscess Status: Acute Total Time Spent on D/C: > 30 Minutes Date of Service: Mar 14, 2025 Billing Provider: ELSI GUNN Common Visit Codes: 75769-DCA/OBS DISCH DAY >30min ELSI GUNN Mar 14, 2025 17:39
[2025-03-15] MEDS ORDERED: pantoprazole 40mg Tablet.DR PO SCH (07:30)
== END 2025-03-14 15:35 | disposition home or self-care (01) | DRG 854 ==
LOC: ER 07:47 → ED HOLD 14:26 → EDBEDREQTM 14:37 → PCU 3S 15:13
PROVIDERS: ADMIT Family Medicine; ATTEND Family Medicine
PROC: BW211ZZ Computerized Tomography (CT Scan) of Abdomen and Pelvis using Low Osmolar Contrast (ICD-10-PCS; 2025-03-11)
PROC: 0D9P0ZZ Drainage of Rectum, Open Approach (ICD-10-PCS; principal; 2025-03-12 10:44)
DX: A41.9 Sepsis, unspecified organism (principal); K61.1 Rectal abscess; G43.909 Migraine, unspecified, not intractable, without status migrainosus; I10 Essential (primary) hypertension; E83.39 Other disorders of phosphorus metabolism; E86.0 Dehydration; E87.6 Hypokalemia; E88.09 Other disorders of plasma-protein metabolism, not elsewhere classified; G89.29 Other chronic pain; K59.09 Other constipation; Z79.899 Other long term (current) drug therapy; Z88.8 Allergy status to other drugs, medicaments and biological substances; Z88.6 Allergy status to analgesic agent; Z88.5 Allergy status to narcotic agent; Z90.710 Acquired absence of both cervix and uterus
CPT/HCPCS: 96365; 96366; 96375; 99285; Z7506; 36415; 74177; 80048; 80053; 81001; 83605; 83735; 83880; 84100; 84443; 84703; 85025; 85610; 85730; 87040; 87070; 87075; 87077; 87081; 87186; A4314; A4615; A4618; A5200; A6253; A6407; A6449; A7000; G0378; J0131; J1100; J1171; J2003; J2250; J2270; J2405; J2470; J2543; J2704; J2765; J3010; J3360; J3480; J7030; J7040; J7120; Q9967

== ENCOUNTER 2025-05-28 08:02 | Emergency (ER) | payer BC ==
[~2025-05-28] VITALS: Ht 167.6 cm; Wt 83.6 kg
[~2025-05-28 08:02] MED LIST: BUPR-726; CYCL-394 PO; CYCL10TA25 PO; DEXT10CA19 PO; [UNRECOGNIZED DRUG - CODE]
[2025-05-28] MEDS ORDERED: GOLYS PO (10:14)
--- NOTE | 2025-05-28 10:14 | Physician Documentation ---
History of Present Illness ~ Chief Complaint: Constipation Stated Complaint: CONSTIPATION Time Seen by MD: 09:26 Primary Medical Doctor: Xin MARSHALL Patient is seen today with complaints of constipation for four days. Patient states he does have history of perirectal abscess with complication requiring hospitalization a few months ago. Patient states she got constipated few days ago and then was afraid to have a bowel movement for fear of tearing. Patient states he does have some abdominal discomfort. She denies any fever or chills in his no other concern or complaint at this time. Medication Reconciliation Allergies: Coded Allergies: aspirin (Unverified Allergy, Unknown, 05/28/25) fentanyl (Unverified Allergy, Unknown, 05/28/25) codeine (Verified Adverse Reaction, Mild, nausea, 05/28/25) Scheduled Cyclobenzaprine HCl (Cyclobenzaprine HCl), 1 TAB PO BID, (Reported) Cyclobenzaprine HCl (Cyclobenzaprine HCl), 1 TAB PO PRN, (Reported) Dextroamphetamine/Amphetamine (Dextroamp-Amphet ER 10 mg Cap), 1 CAP PO QAM, (Reported) Peg 3350/Na Sulf,Bicarb,Cl/KCl (Golytely Solution), 0 PO UD Scheduled PRN Dextroamphetamine/Amphetamine (Dextroamp-Amphet ER 10 mg Cap), 1 CAP PO PRN PRN for adhd, (Reported) Miscellaneous Medications Bupropion HCl (Bupropion Xl), (Reported) Gabapentin (Gabapentin ER), (Reported) Past Medical History Past Medical History: Migraine, Hypertension, Chronic Back Pain, Osteoporosis, *PSYCH* Past Surgical History: noncontributory Alcohol Use: Heavy Lives with: Spouse Lives In: Home Occupation: employed Review of Systems Constitutional: Denies: chills, fever, weakness Eyes: Denies: pain, blurred vision ENT: Denies: ear pain, nose pain, throat pain, mouth pain Respiratory: Denies: cough, shortness of breath Cardiovascular: Denies: chest pain, palpitations Gastrointestinal: Denies: abdominal pain, nausea, vomiting Genitourinary: Denies: burning, dysuria Female Genitalia: Denies: vaginal discharge, pelvic pain Neurological: Denies: headache, dizziness Musculoskeletal: Denies: pain, swelling Integumentary: Denies: rash, lesions Allergic/Immunologic: Denies: hives, itching Hematologic/Lymphatic: Denies: no symptoms reported Psychiatric: Denies: depression, anxiety Physical Exam Vital Signs: Temperature: 97.8, Source: Oral, Heart Rate: 9, Respiratory Rate: 18, BP: 169/90, Pulse Oximetry: 100, Weight: 83.600 Oxygen Flow Rate: 0 Physical Exam General: Awake and Alert, no acute distress. HEENT: Conjunctiva pink, Sclera clear, Mucus Membranes moist. Neck: Supple without masses and tenderness. Resp: Unlabored. Lungs clear to auscultation bilaterally. Heart: Regular Rate and rhythm, normal S1 and S2 without murmur, rub or gallop. Abdomen: Has been is soft, nondistended, mild diffuse tenderness without rebound and without guarding. Extremities: No cyanosis,clubbing or edema. Skin: Warm and Dry. Progress Results/Orders Results/Orders Vital Signs 05/28/25 08:26 Temp 97.8 Pulse 9 Resp 18 B/P (MAP) 169/90 Pulse Ox 100 O2 Flow Rate 0 Medical Decision Making Additional information obtaine: N/A Findings Patient is seen today with complaints of constipation for four days. Patient states he does have history of perirectal abscess with complication requiring hospitalization a few months ago. Patient states she got constipated few days ago and then was afraid to have a bowel movement for fear of tearing. Patient states he does have some abdominal discomfort. She denies any fever or chills in his no other concern or complaint at this time. Patient will increase dose of MiraLax 2-2 3 times a day while staying very well hydrated. Patient was given prescription for GoLYTELY. Patient will also take senna 2-3 tablets to two 3 times a day and continue increase fiber diet and stool softeners. Patient will return to ED in 1-2 days if no better as needed sooner. Diff Dx GI Bleed:Consideration: Include: Diverticulitis, Gastritis Diff Dx Pain:Considerations: Include: AAA, Appendicitis Diff Dx N/V/D:Considerations: Include: Bowel obstruction Diff Dx Rectal:Considerations: Include: Fissure, Fistula, Perirectal abscess, Rectal prolapse Departure Disposition: HOME / SELF CARE / HOMELESS Impression: Primary Impression: Constipation Qualified Codes: K59.00 - Constipation, unspecified Condition: Stable Discharge Instructions: Constipation, Adult Additional Instructions: Patient will increase dose of MiraLax 2-2 3 times a day while staying very well hydrated. Patient was given prescription for GoLYTELY. Patient will also take senna 2-3 tablets to two 3 times a day and continue increase fiber diet and stool softeners. Patient will return to ED in 1-2 days if no better as needed sooner. Referrals: NO PRIMARY CARE PROVIDER (PCP) Prescriptions Sennosides/Docusate Sodium (Senna Plus 8.6-50 mg Tablet) 8.6 Mg-50 Mg Tablet 2 TAB PO BID for 20 Days, #80 TAB 0 Refills Prov: EZRA MACIAS 05/28/25 Peg 3350/Na Sulf,Bicarb,Cl/KCl (Golytely Solution) 236-22.74G Soln.recon 0 PO UD, #4000 ML 0 Refills Take according to instructions on printed sheet Prov: EZRA MACIAS 05/28/25 Signature Scribe Signature: No scribe Attestation: No scribe EZRA MACIAS May 28, 2025 10:14
[2025-05-28 10:17] VITALS: BP 130/84; PULSE 78; RESP 16; TEMP 98.4; O2SAT 99
[2025-05-28] MEDS ORDERED: SENN-302 PO (10:21)
== END 2025-05-28 10:21 | disposition home or self-care (01) ==
LOC: ER 08:02
DX: K59.00 Constipation, unspecified (principal); F10.90 Alcohol use, unspecified, uncomplicated; I10 Essential (primary) hypertension; G43.909 Migraine, unspecified, not intractable, without status migrainosus; M81.0 Age-related osteoporosis without current pathological fracture; Z88.5 Allergy status to narcotic agent; Z88.6 Allergy status to analgesic agent; Y90.9 Presence of alcohol in blood, level not specified
CPT/HCPCS: 99283; A6266; A6449